=== PATIENT | female | born 1955 | race Caucasian/White ===

== ENCOUNTER 2018-01-04 17:12 | Emergency (ER) | payer OTHER ==
[~2018-01-04] VITALS: Ht 160 cm; Wt 86.5 kg
[2018-01-04 17:21] VITALS: BP 183/84; PULSE 69; RESP 16; TEMP 98.7; O2SAT 94
[2018-01-04] MEDS ORDERED: HYDR25TA5 PO (17:38)
[2018-01-04] MEDS ORDERED: SERT-129 PO (17:38)
[2018-01-04] MEDS ORDERED: SODIUM CHLORIDE 0.9% FLUSH 10 ML FLUSH IVF PRN (17:45)
--- NOTE | 2018-01-04 17:45 | PD ---
HPI Chief Complaint: Syncope/Near-Syncope Time Seen by Provider: 17:33 Travel History International Travel<30 days: No Contact w/Intl Traveler<30days: No Traveled to known affect area: No History of Present Illness HPI The patient was seen and examined in the presence of the nurse. This patient flew from [place] to [place] today. She was nervous about the flight so she did not eat and had a glass of wine. She stood up to go to the bathroom and she got dizzy and lightheaded and nauseous. She had a syncopal episode and fell and hit the back of her head. She did not have any chest pain or headache. She has no head or neck pain at this time. Takes no blood thinners. No cardiac disease. Now she feels okay. She was advised to get checked out. She does have an occipital laceration. Symptom severity is mild. No alleviating factors. No exacerbating factors. PFSH Past Medical History Hx Anticoagulant Therapy: No Cardiovascular Problems: Yes (htn on meds) High Cholesterol: Yes Diminished Hearing: No Hypertension: Yes Tetanus Vaccination: Unknown Influenza Vaccination: No ?: Not Past Surgical History Cholecystectomy: Yes Social History Alcohol Use: Yes (WINE DAILY) Tobacco Use: No Substance Use: No Allergies-Medications (Allergen,Severity, Reaction): Coded Allergies: Sulfa (Sulfonamide Antibiotics) (Verified Allergy, Intermediate, anxiety, 01/04/18) Reported Meds & Prescriptions Reported Meds & Active Scripts Active Reported Hydrochlorothiazide 25 Mg Tab 25 Mg PO DAILY Sertraline (Sertraline HCl) 100 Mg Tab 100 Mg PO DAILY Review of Systems General / Constitutional: No: Fever Eyes: No: Visual changes HENT: Positive: Lightheadedness, No: Headaches Cardiovascular: Positive: Syncope, No: Chest Pain or Discomfort Respiratory: No: Shortness of Breath Gastrointestinal: Positive: Nausea, No: Abdominal Pain Genitourinary: No: Dysuria Musculoskeletal: No: Pain Skin: No Rash Neurologic: Positive: Dizziness, Syncope, No: Weakness Psychiatric: No: Depression Endocrine: No: Polydipsia Hematologic/Lymphatic: No: Easy Bruising Physical Exam Narrative GENERAL: Well-nourished, well-developed patient in no apparent distress. SKIN: Focused skin assessment reveals no rash and nodules. Skin is Warm and dry. HEAD: 3 cm occipital laceration. Normocephalic. EYES: Pupils equal and round. No scleral icterus. No injection or drainage. ENT: No nasal bleeding or discharge. Mucous membranes pink and moist. NECK: Trachea midline. No JVD. No midline tenderness CARDIOVASCULAR: Regular rate and rhythm. No murmur appreciated. RESPIRATORY: No accessory muscle use. Clear to auscultation. Breath sounds equal bilaterally. GASTROINTESTINAL: Abdomen soft, non-tender, nondistended. Hepatic and splenic margins not palpable. MUSCULOSKELETAL: No obvious deformities. No clubbing. No cyanosis. No edema. NEUROLOGICAL: Awake and alert. No obvious cranial nerve deficits. Motor grossly within normal limits. Normal speech. PSYCHIATRIC: Appropriate mood and affect; insight and judgment normal. Data Data Last Documented VS Vital Signs Date Time Temp Pulse Resp B/P (MAP) Pulse Ox O2 Delivery O2 Flow Rate FiO2 01/04/18 18:11 18 01/04/18 17:21 98.7 69 183/84 (117) 94 Orders Orders Electrocardiogram (01/04/18 17:39) Basic Metabolic Panel (Bmp) (01/04/18 17:39) Complete Blood Count With Diff (01/04/18 17:39) Ecg Monitoring (01/04/18 17:39) Iv Access Insert/Monitor (01/04/18 17:39) Sodium Chloride 0.9% Flush (Ns Flush) (01/04/18 17:45) Ed Discharge Order (01/04/18 18:57) Potassium Chloride Eff (K-Lyte Cl Eff) (01/04/18 19:00) Labs Laboratory Tests Test 01/04/18 18:00 White Blood Count 7.7 TH/MM3 Red Blood Count 4.44 MIL/MM3 Hemoglobin 13.4 GM/DL Hematocrit 39.8 % Mean Corpuscular Volume 89.5 FL Mean Corpuscular Hemoglobin 30.1 PG Mean Corpuscular Hemoglobin Concent 33.7 % Red Cell Distribution Width 12.5 % Platelet Count 305 TH/MM3 Mean Platelet Volume 7.8 FL Neutrophils (%) (Auto) 71.1 % Lymphocytes (%) (Auto) 22.1 % Monocytes (%) (Auto) 4.8 % Eosinophils (%) (Auto) 1.3 % Basophils (%) (Auto) 0.7 % Neutrophils # (Auto) 5.4 TH/MM3 Lymphocytes # (Auto) 1.7 TH/MM3 Monocytes # (Auto) 0.4 TH/MM3 Eosinophils # (Auto) 0.1 TH/MM3 Basophils # (Auto) 0.1 TH/MM3 CBC Comment DIFF FINAL Differential Comment Blood Urea Nitrogen 15 MG/DL Creatinine 0.82 MG/DL Random Glucose 93 MG/DL Calcium Level 9.2 MG/DL Sodium Level 138 MEQ/L Potassium Level 3.0 MEQ/L Chloride Level 102 MEQ/L Carbon Dioxide Level 29.8 MEQ/L Anion Gap 6 MEQ/L Estimat Glomerular Filtration Rate 71 ML/MIN [facility] Medical Decision Making Medical Screen Exam Complete: Yes Emergency Medical Condition: Yes Medical Record Reviewed: Yes Differential Diagnosis Vasovagal episode, head injury, cardiac arrhythmia Narrative Course I have reviewed the patient's electronic medical record. LACERATION LOCATION: Occipital scalp LENGTH: 3 cm NUMBER OF STITCHES/DARCIE: 5 REPAIR: The area of the laceration was prepped with Betadine and sterilely draped. No anesthesia needed the wound was copiously irrigated and explored without evidence of foreign body, tendon injury or neurovascular injury. The wound was closed using darcie. This was a single layer repair. A sterile dressing was applied. The patient was advised to keep the dressing clean and dry. Patient tolerated the procedure well. Extended cardiac monitoring I reviewed her EKG which shows sinus rhythm and no ST elevation or ectopy CBC is normal Metabolic profile is normal except for potassium of 3.0 which is replaced orally Regarding her head injury, she is neurologically intact with no headache. She takes no blood thinners. I do not feel she needs brain CT to evaluate her head injury. Patient had no chest pain and there is no clinical suspicion of ACS or need for emergent stress testing. She should discuss this with her primary physician and return if she worsens Diagnosis Primary Impression: Syncope Qualified Codes: R55 - Syncope and collapse Additional Impression: Hypokalemia Additional Instructions: The patient was advised to follow up with their physician and return if they worsen. Staple removal in 10 days Med/Other Pt SpecificInfo: Other Disposition: 01 DISCHARGE HOME Condition: Stable Washington Abdi MD Jan 04, 2018 17:45
[2018-01-04 18:18] LABS: AUTOMATED NEUTROPHIL # 5.4 TH/MM3 (1.8-7.7); BASOPHIL # 0.1 TH/MM3 (0-0.2); BASOPHIL % 0.7 % (0.0-2.0); EOSINOPHIL # 0.1 TH/MM3 (0-0.4); EOSINOPHIL % 1.3 % (0.0-4.0); HEMATOCRIT 39.8 % (35.0-46.0); HEMOGLOBIN 13.4 GM/DL (11.6-15.3); LYMPH % 22.1 % (9.0-44.0); LYMPHOCYTE # 1.7 TH/MM3 (1.0-4.8); MEAN CELL VOLUME 89.5 FL (80.0-100.0); MEAN CORPUSCULAR HEMOGLOBIN 30.1 PG (27.0-34.0); MEAN CORPUSCULAR HGB CONC 33.7 % (32.0-36.0); MEAN PLATELET VOLUME 7.8 FL (7.0-11.0); MONO % 4.8 % (0.0-8.0); MONOCYTE # 0.4 TH/MM3 (0-0.9); NEUT % 71.1 % (16.0-70.0); PLATELET COUNT 305 TH/MM3 (150-450); RED BLOOD COUNT 4.44 MIL/MM3 (4.00-5.30); RED CELL DISTRIBUTION WIDTH 12.5 % (11.6-17.2); WHITE BLOOD COUNT 7.7 TH/MM3 (4.0-11.0)
[2018-01-04 18:34] LABS: CALCIUM 9.2 MG/DL (8.5-10.1)
[2018-01-04 18:35] LABS: BICARBONATE 29.8 MEQ/L (21.0-32.0)
[2018-01-04 18:38] LABS: CREATININE 0.82 MG/DL (0.50-1.00)
[2018-01-04] MEDS ORDERED: POTASSIUM CHLORIDE 25 MEQ EFFERVESCENT TAB PO ONE (19:00)
[2018-01-04 19:28] VITALS: BP 150/68
--- NOTE | 2018-01-05 22:50 | EKG ---
Date Performed: 01/04/2018 Time Performed: 17:52:49 PTAGE: 62 years EKG: Sinus rhythm NORMAL ECG NO PREVIOUS TRACING DOCTOR: Stef Thurston Interpretating Date/Time 01/05/2018 22:47:47
== END 2018-01-04 19:54 | disposition home or self-care (01) ==
LOC: PHED 17:12
DX: S01.01XA Laceration without foreign body of scalp, initial encounter (principal); W18.39XA Other fall on same level, initial encounter; R55 Syncope and collapse; E87.6 Hypokalemia; I10 Essential (primary) hypertension; E78.00 Pure hypercholesterolemia, unspecified
CPT/HCPCS: 12002; 80048; 85025; 93005

== ENCOUNTER 2018-01-14 09:15 | Emergency (ER) | payer OTHER ==
[~2018-01-14] VITALS: Ht 160 cm; Wt 86.8 kg
[~2018-01-14 09:15] MED LIST: HYDR25TA5 PO; SERT-129 PO
[2018-01-14 09:19] VITALS: BP 140/67; PULSE 74; RESP 16; TEMP 97.8; O2SAT 94
--- NOTE | 2018-01-14 09:41 | PD ---
HPI Chief Complaint: Wound/Suture/Staple Re-Check Time Seen by Provider: 09:35 Travel History International Travel<30 days: No Contact w/Intl Traveler<30days: No Traveled to known affect area: No History of Present Illness HPI 62-year-old female presents to the emergency department for evaluation staple removal to her occipital scalp. Patient has 5 darcie placed 10 days ago to the occipital scalp. She denies any symptoms or complaints. No pain. Mild severity. PFSH Past Medical History Hx Anticoagulant Therapy: No Cardiovascular Problems: No High Cholesterol: Yes Chemotherapy: No Cerebrovascular Accident: No Diabetes: No Diminished Hearing: No Hypertension: Yes Respiratory: No ?: Not Past Surgical History Cholecystectomy: Yes Hysterectomy: No Social History Alcohol Use: Yes (WINE DAILY) Tobacco Use: No Substance Use: No Allergies-Medications (Allergen,Severity, Reaction): Coded Allergies: Sulfa (Sulfonamide Antibiotics) (Verified Allergy, Intermediate, anxiety, 01/14/18) Reported Meds & Prescriptions Reported Meds & Active Scripts Active Reported Hydrochlorothiazide 25 Mg Tab 25 Mg PO DAILY Sertraline (Sertraline HCl) 100 Mg Tab 100 Mg PO DAILY Review of Systems Except as stated in HPI: all other systems reviewed are Neg Physical Exam Narrative GENERAL: Well-nourished, well-developed female patient, afebrile SKIN: Focused skin assessment warm/dry. Patient has healing laceration without erythema or drainage the occipital scalp with [address] HEAD: Normocephalic. EYES: No scleral icterus. No injection or drainage. RESPIRATORY: No accessory muscle use. MUSCULOSKELETAL: No cyanosis, or edema. Data Data Last Documented VS Vital Signs Date Time Temp Pulse Resp B/P (MAP) Pulse Ox O2 Delivery O2 Flow Rate FiO2 01/14/18 09:19 97.8 74 16 140/67 (91) 94 MDM Medical Decision Making Medical Screen Exam Complete: Yes Emergency Medical Condition: Yes Medical Record Reviewed: Yes Differential Diagnosis Staple removal versus dehiscence versus cellulitis Narrative Course 62-year-old female presents to the emergency department for staple removal. [place] removed without difficulty. Patient is stable for discharge. Diagnosis Primary Impression: Removal of darcie Referrals: Primary Care Physician as needed Patient Instructions: General Instructions, Stitches Removal (ED), Moderate Sedation in Children (ED) Additional Instructions: Clean area gently. Follow-up with your primary care physician as needed. Return to the emergency department for any emergent symptoms. Med/Other Pt SpecificInfo: No Change to Meds Disposition: 01 DISCHARGE HOME Condition: Stable Grace Ayers Jan 14, 2018 09:41
== END 2018-01-14 09:56 | disposition home or self-care (01) ==
LOC: PHEFT 09:15
DX: Z48.02 Encounter for removal of sutures (principal); I10 Essential (primary) hypertension; E78.00 Pure hypercholesterolemia, unspecified; Z88.2 Allergy status to sulfonamides; Z79.899 Other long term (current) drug therapy
CPT/HCPCS: 99281